=== PATIENT | male | born 1950 | race Caucasian/White ===

== ENCOUNTER → 2017-02-09 | Outpatient (CLI) | payer OTHER ==
[2017-02-09 13:07] LABS: BASO % 0.4 %; BASO ABS # 0.02 K/uL (0-0.2); COMPLETE YES; IG% 0.2 %; LYMPH % 43.5 %; LYMPH ABS # 2.04 K/uL (1.2-3.4); MEAN CELL VOLUME 89.1 fL (80-100); MEAN CORPUSCULAR HEMOGLOBIN 30.1 pg (25-34); MEAN CORPUSCULAR HGB CONC 33.8 g/dl (32-36); MEAN PLATELET VOLUME 11.4 fL (7.4-10.4); MONO % 7.9 %; PLATELET COUNT 204 K/uL (130-400); RED BLOOD COUNT 5.05 M/uL (4.7-6.1); WHITE BLOOD COUNT 4.69 K/uL (4.8-10.8)
[2017-02-09 14:19] LABS: ALT/SGPT 41 U/L (12-78); BLOOD UREA NITROGEN 15 mg/dl (7-18); BUN/CREATININE RATIO 13.5 (10-20); CARBON DIOXIDE 24 mmol/L (21-32); CHLORIDE 102 mmol/L (98-107); GLUCOSE 149 mg/dl (70-99); POTASSIUM 4.2 mmol/L (3.5-5.1); SODIUM 136 mmol/L (136-145)
[2017-02-09 14:27] LABS: ALB/GLOB RATIO 0.9 (0.9-2); ALKALINE PHOSPHATASE 73 U/L (45-117); AST/SGOT 27 U/L (15-37); CHOLESTEROL 261 mg/dl (0-200); CHOLESTEROL/HDL RATIO 9.7; HDL CHOLESTEROL 27 mg/dl; LDL CHOLESTEROL CALCULATED 185 mg/dl; PROSTATE SPECIFIC ANTIGEN 0.441 ng/ml (0.000-4.000); TRIGLYCERIDES 245 mg/dl (0-150); VERY LOW DENSITY LIPOPROT CALC 49 mg/dl
== END | disposition home or self-care (01) ==
LOC: C.LABSPEC 12:56
PROVIDERS: ATTEND Family Medicine
DX: Z00.00 Encounter for general adult medical examination without abnormal findings (principal); I10 Essential (primary) hypertension; E78.2 Mixed hyperlipidemia; Z12.5 Encounter for screening for malignant neoplasm of prostate; Z11.3 Encounter for screening for infections with a predominantly sexual mode of transmission

== ENCOUNTER → 2017-06-26 | Outpatient (CLI) | payer OTHER ==
[2017-06-26 18:46] LABS: ALBUMIN 4.1 gm/dl (3.4-5.0); ALT/SGPT 66 U/L (12-78); BLOOD UREA NITROGEN 11 mg/dl (7-18); CALCIUM 9.1 mg/dl (8.5-10.1); CARBON DIOXIDE 27 mmol/L (21-32); CREATININE 1.07 mg/dl (0.60-1.40); GLUCOSE 119 mg/dl (70-99); POTASSIUM 4.3 mmol/L (3.5-5.1); SODIUM 134 mmol/L (136-145)
[2017-06-26 18:51] LABS: ALKALINE PHOSPHATASE 65 U/L (45-117); AST/SGOT 43 U/L (15-37); TOTAL PROTEIN 8.1 gm/dl (6.4-8.2)
[2017-06-26 19:13] LABS: BASO % 0.4 %; BASO ABS # 0.03 K/uL (0-0.2); EOS % 1.6 %; EOS ABS # 0.11 K/uL (0-0.5); HEMATOCRIT 43.5 % (42-52); IG# 0.02 K/uL (0.00-0.02); LYMPH % 29.3 %; LYMPH ABS # 2.02 K/uL (1.2-3.4); MEAN CELL VOLUME 87.7 fL (80-100); MEAN CORPUSCULAR HEMOGLOBIN 30.2 pg (25-34); MEAN CORPUSCULAR HGB CONC 34.5 g/dl (32-36); MEAN PLATELET VOLUME 11.6 fL (7.4-10.4); MONO % 7.1 %; MONO ABS # 0.49 K/uL (0.11-0.59); NEUT % 61.3 %; NEUT ABS # 4.23 K/uL (1.4-6.5); PLATELET COUNT 220 K/uL (130-400); RED CELL DISTRIBUTION WIDTH CV 13.1 % (11.5-14.5); RED CELL DISTRIBUTION WIDTH SD 41.6 fL (36.4-46.3)
== END | disposition home or self-care (01) ==
LOC: C.LABSPEC 17:48
PROVIDERS: ATTEND Family Medicine
DX: R06.02 Shortness of breath (principal)